=== PATIENT | male | born 1955 | race Caucasian/White ===

== ENCOUNTER → 2017-04-18 | Outpatient (CLI) | payer OTHER ==
[~2017-04-18] MED LIST: ADVAIR 250/501 EA INH; ALBUTEROL0.09 MG/AC INH; ALBUTEROL0.63 MG/3 INH; AMBIEN10 M1 PO; CIPRO250 MG PO; GLIPIZIDE10 MG PO; GLUCOPHAGE1000 MG PO; HYDROCODONE BIT1 T11 PO; IBUPROFEN 30 M800 MG PO; JARDIANCE10 MG PO; LEVEMIR10 ML SQ; LISINOPRIL20 MG PO; LISINOPRIL5 MG PO; METFORMIN500 MG PO; Motrin,Rufen800 MG PO; NEURONTIN600 MG PO; ONGLYZA5 MG PO; QVAR0.08 MG/AC INH; SIMVASTATIN10 MG PO; SINGULAIR10 MG PO; SYMBICORT1 AE1 INH; TAMSULOSIN HCL0.4 MG PO; VENTOLIN 02.5 MG/3 M INH; VENTOLIN H0.09 MG/AC INH; VICO75300 PO; VICODIN ES 7501 TAB PO; VITAMIN D50000 I3 PO; ZOCOR20 MG PO
--- NOTE | ~2017-04-18 | WRIGHTHP ---
[place], [place] PATIENT HISTORY AND PHYSICAL EXAM NAME: [facility]S [facility]: [id number] UNIT #: [id number] ROOM: DOCTOR: RIGO IsabelISA BIRTHDATE: [birth year] DOS: 04/18/2017 This is a new wound care evaluation. CHIEF COMPLAINT: Itchy and reddened area on the left leg. HISTORY OF PRESENT ILLNESS: This is a 61-year-old male who is a diabetic who apparently was referred to us from his PCP for an area of his left leg that has been itchy and red for the past 5 months now. It is somewhat shaped like a toby. The patient states that he actually has been using triple antibiotic ointment on it for an extended period of time, which he thinks is helping and also he did state that since he was recently started on prednisone for a contact dermatitis from poison oak that area of redness and itching has also improved after starting oral steroids for this poison oak that he has had. He never really had an open ulcer per his report. He states he has occasionally had a scabbed area that kind of falls off but really it has not ever been open and draining. He is not sure how it all started. PAST MEDICAL HISTORY: Significant for the following, hyperlipidemia; hypertension; type 2 diabetes, his blood sugar is 150 in the morning usually, he is on insulin and oral agents; he has a history of kidney stones; peripheral neuropathy; insomnia; asthma; bronchitis; COPD and sleep apnea. PAST SURGICAL HISTORY: He is status post kidney surgery, parathyroid surgery, broken ankle surgery, carpal tunnel surgery, hemorrhoidectomy and colonoscopy in 2014. FAMILY HISTORY: Significant for diabetes. SOCIAL HISTORY: He is a current every day smoker and he is single. He does not use drugs or alcohol. ALLERGIES: PENICILLIN. MEDICATIONS: Neurontin 600 mg p.o. t.i.d., Jardiance 10 mg p.o. daily, metformin 1000 mg p.o. b.i.d., Nesina 25 mg daily, simvastatin 20 mg daily, lisinopril 20 mg daily, albuterol inhalation nebulizers every 6 hours p.r.n., Ventolin 2 puffs every 4 hours p.r.n., Anoro Ellipta inhalation 1 puff daily, Depo-Medrol injection, insulin subcutaneous 40 units b.i.d., Singulair 10 mg daily, [place] 1 tablet p.o. b.i.d. p.r.n., ibuprofen 800 mg p.o. t.i.d. p.r.n., trazodone 50 mg at bedtime as needed and hydrochlorothiazide 25 mg p.o. daily. REVIEW OF SYSTEMS: Other than the reddened itchy rash on his anterior leg, which is right by where a sock would be, he has no other specific complaints today. PHYSICAL EXAMINATION: VITAL SIGNS: Temperature 98, pulse 80, respirations 16 and blood pressure is 110/62. GENERAL: This is a male who is healthy, well-developed and well-nourished, in [place], [place] PATIENT HISTORY AND PHYSICAL EXAM NAME: GERMAN CARDENAS UNIT #: [id number] ROOM: DOCTOR: ISA SIERRA M.D. BIRTHDATE: [birth year] no acute distress, pleasant and cooperative. HEENT: Shows sclerae are anicteric. Extraocular movements are intact. NECK: I did not appreciate any JVD. LUNGS: Have occasional wheezes bilaterally. CARDIOVASCULAR: S1, S2 regular rate and rhythm. ABDOMEN: Soft. EXTREMITIES: He has no edema. He does have some hemosiderin staining of his bilateral lower extremities, some superficial varicosities and also no open areas on his leg at this time. He does have a carroll and it is difficult to say how much of the skin discoloration he has is secondary to the suntan versus hemosiderin staining, but there seems to be some hemosiderin staining present. There is a very small erythematous area, it is not open, it is toby shaped that is where he complains of pruritus and it is not scaly, it is not circular, it does not appear to have a fungal type appearance, but it is not open at the present time. ASSESSMENT AND PLAN: Dermatitis type area of the left lower extremity, which did seem to improve with oral prednisone. I recommend to stop using triple antibiotic ointment as dermatitis can be a significant problem for some people after a prolonged period of use. The patient does not have an open wound at this time, so a complete MELISA assessment was not done today. He should be seen by a digital press operator. I did explain this to the patient and we will ask the primary care doctor to refer the patient to a digital press operator. In the meantime, a script for triamcinolone cream was given to the patient to be utilized twice a day for 1-2 weeks but no more than 2 weeks. The patient should follow up with the digital press operator for this area. ISA SIERRA MD CM:HISPHYS:PATIENT HISTORY AND PHYSICAL EXAMINATION [id number] ISA SIERRA M.D. 04/23/17 1011 interface
== END | disposition home or self-care (01) ==
LOC: WOUNDCARE 01:21
DX: I87.2 Venous insufficiency (chronic) (peripheral) (principal); I10 Essential (primary) hypertension; E78.5 Hyperlipidemia, unspecified; E11.42 Type 2 diabetes mellitus with diabetic polyneuropathy; J44.9 Chronic obstructive pulmonary disease, unspecified; F17.200 Nicotine dependence, unspecified, uncomplicated; Z79.4 Long term (current) use of insulin

== ENCOUNTER → 2018-01-23 | Outpatient (CLI) | payer OTHER ==
[2018-01-23 10:15] LABS: BASO # 0.1 10*3/uL (0.0-0.1); BASO % 0.5 % (0.0-1.0); EOS # 0.5 10*3/uL (0.0-0.4); EOS % 4.6 % (1.0-4.0); HEMATOCRIT 49.3 % (42.0-52.0); HEMOGLOBIN 16.5 g/dl (14.0-18.0); LYMPH % 25.9 % (27.0-41.0); MEAN CELL VOLUME 93.9 fl (80.0-94.0); MEAN CORPUSCULAR HGB 31.4 pg (27.0-31.0); MEAN CORPUSCULAR HGB CONC 33.5 g/dl (33.0-37.0); MEAN PLATELET VOLUME 10.2 fl (9.6-12.3); MONO # 1.1 10*3/uL (0.1-1.0); MONO % 9.6 % (3.0-9.0); NEUT # 6.7 10*3/uL (2.3-7.9); NEUT % 58.6 % (47.0-73.0); PLATELET COUNT AUTOMATED 202 10*3/uL (130-400); RED BLOOD COUNT 5.25 10*6/uL (4.50-5.90); RED CELL DISTRI WIDTH 13.7 % (0-14.5); WHITE BLOOD COUNT 11.4 10*3/uL (4.8-10.8)
[2018-01-23 10:31] LABS: ALBUMIN 3.5 gm/dl (3.1-4.5); ALKALINE PHOSPHATASE 93 U/L (45-117); BUN 29 mg/dl (7-24); CHLORIDE 103 mmol/L (98-107); CHOLESTEROL 110 mg/dL (<200); CREATININE 1.34 mg/dL (0.70-1.30); HDL CHOLESTEROL 36 mg/dl (40-60); LDL CHOLESTEROL 32 mg/dL (9-159); POTASSIUM 4.2 mmol/L (3.5-5.1); SGOT/AST 16 IU/L (3-35); SGPT/ALT 28 U/L (12-78); SODIUM 136 mmol/L (136-145); TOTAL PROTEIN 7.7 gm/dL (6.4-8.2); TRIGLYCERIDES 212 mg/dl (<150); VLDL CHOLESTEROL 42 mg/dL (6-40)
== END | disposition home or self-care (01) ==
LOC: LAB 09:31
PROVIDERS: Internal Medicine
DX: E78.00 Pure hypercholesterolemia, unspecified (principal); E11.42 Type 2 diabetes mellitus with diabetic polyneuropathy; E55.9 Vitamin D deficiency, unspecified

== ENCOUNTER → 2019-09-30 | Outpatient (CLI) | payer OTHER ==
[~2019-09-30] MED LIST changes: +DOXYCYCLINE100 M3 PO
== END | disposition home or self-care (01) ==
LOC: ORTHO 00:52
DX: M19.012 Primary osteoarthritis, left shoulder (principal)

== ENCOUNTER → 2020-04-04 | Outpatient (CLI) | payer OTHER ==
[2020-04-04 13:25] LABS: BASO # 0.1 10*3/uL (0.0-0.1); BASO % 0.8 % (0.0-1.0); EOS # 0.3 10*3/uL (0.0-0.4); EOS % 3.9 % (1.0-4.0); HEMATOCRIT 51.1 % (42.0-52.0); LYMPH # 2.3 10*3/uL (1.3-4.4); LYMPH % 31.1 % (27.0-41.0); MEAN CELL VOLUME 91.4 fl (80.0-94.0); MEAN CORPUSCULAR HGB 30.6 pg (27.0-31.0); MEAN CORPUSCULAR HGB CONC 33.5 g/dl (33.0-37.0); MEAN PLATELET VOLUME 9.5 fl (9.6-12.3); MONO # 0.6 10*3/uL (0.1-1.0); MONO % 8.6 % (3.0-9.0); NEUT # 4.1 10*3/uL (2.3-7.9); NEUT % 54.8 % (47.0-73.0); PLATELET COUNT AUTOMATED 202 10*3/uL (130-400); RED BLOOD COUNT 5.59 10*6/uL (4.50-5.90); RED CELL DISTRI WIDTH 13.1 % (0-14.5); WHITE BLOOD COUNT 7.5 10*3/uL (4.8-10.8)
[2020-04-04 13:43] LABS: ALBUMIN 3.5 gm/dl (3.1-4.5); ALKALINE PHOSPHATASE 90 U/L (45-117); BUN 20 mg/dl (7-24); CHLORIDE 100 mmol/L (98-107); CHOLESTEROL 126 mg/dL (<200); CREATININE 1.27 mg/dL (0.70-1.30); HDL CHOLESTEROL 39 mg/dl (40-60); LDL CHOLESTEROL 40 mg/dL (9-159); POTASSIUM 4.1 mmol/L (3.5-5.1); SGOT/AST 14 IU/L (3-35); SGPT/ALT 27 U/L (12-78); SODIUM 131 mmol/L (136-145); TOTAL PROTEIN 7.7 gm/dL (6.4-8.2); TRIGLYCERIDES 235 mg/dl (<150); VLDL CHOLESTEROL 47 mg/dL (6-40)
== END | disposition home or self-care (01) ==
LOC: LAB 13:03
PROVIDERS: Nurse Practitioner Primary Care
DX: I10 Essential (primary) hypertension (principal); E11.42 Type 2 diabetes mellitus with diabetic polyneuropathy

== ENCOUNTER → 2020-05-17 | Outpatient (CLI) | payer SELFPAY | END | disposition home or self-care (01) | LOC: RESCLI 08:56 | PROVIDERS: ATTEND Student in an Organized Health Care Education/Training Program | DX: J44.1 Chronic obstructive pulmonary disease with (acute) exacerbation (principal); I10 Essential (primary) hypertension; E11.65 Type 2 diabetes mellitus with hyperglycemia; E55.9 Vitamin D deficiency, unspecified; K21.9 Gastro-esophageal reflux disease without esophagitis; G62.9 Polyneuropathy, unspecified; E78.5 Hyperlipidemia, unspecified; G47.00 Insomnia, unspecified; F17.210 Nicotine dependence, cigarettes, uncomplicated; Z88.0 Allergy status to penicillin; Z12.11 Encounter for screening for malignant neoplasm of colon; Z79.899 Other long term (current) drug therapy; Z23 Encounter for immunization; Z98.890 Other specified postprocedural states ==

== ENCOUNTER → 2020-06-23 | Outpatient (CLI) | payer SELFPAY | END | disposition home or self-care (01) | LOC: RESCLI 10:01 | PROVIDERS: ATTEND Internal Medicine Nephrology | DX: J44.1 Chronic obstructive pulmonary disease with (acute) exacerbation (principal); I10 Essential (primary) hypertension; E55.9 Vitamin D deficiency, unspecified; E11.42 Type 2 diabetes mellitus with diabetic polyneuropathy; G89.29 Other chronic pain; M54.42 Lumbago with sciatica, left side; M75.02 Adhesive capsulitis of left shoulder; K21.9 Gastro-esophageal reflux disease without esophagitis; G47.33 Obstructive sleep apnea (adult) (pediatric); F51.04 Psychophysiologic insomnia; M19.012 Primary osteoarthritis, left shoulder; G62.9 Polyneuropathy, unspecified; E78.5 Hyperlipidemia, unspecified; Z79.4 Long term (current) use of insulin; G47.00 Insomnia, unspecified; M75.82 Other shoulder lesions, left shoulder; D58.2 Other hemoglobinopathies; J30.1 Allergic rhinitis due to pollen; E78.00 Pure hypercholesterolemia, unspecified; E78.1 Pure hyperglyceridemia; J41.1 Mucopurulent chronic bronchitis; E11.65 Type 2 diabetes mellitus with hyperglycemia; Z79.899 Other long term (current) drug therapy; Z98.890 Other specified postprocedural states ==

== ENCOUNTER → 2020-07-27 | Outpatient (CLI) | payer OTHER | END | disposition home or self-care (01) | LOC: RESCLI 09:51 | PROVIDERS: ATTEND Internal Medicine | DX: J44.1 Chronic obstructive pulmonary disease with (acute) exacerbation (principal); I10 Essential (primary) hypertension; E55.9 Vitamin D deficiency, unspecified; E78.5 Hyperlipidemia, unspecified; K21.9 Gastro-esophageal reflux disease without esophagitis; G62.9 Polyneuropathy, unspecified; E11.65 Type 2 diabetes mellitus with hyperglycemia; F17.210 Nicotine dependence, cigarettes, uncomplicated; Z23 Encounter for immunization; Z12.11 Encounter for screening for malignant neoplasm of colon; Z79.899 Other long term (current) drug therapy; Z98.890 Other specified postprocedural states; Z88.0 Allergy status to penicillin ==

== ENCOUNTER → 2020-10-11 | Outpatient (CLI) | payer OTHER | END | disposition home or self-care (01) | LOC: RAD 11:49 | PROVIDERS: ATTEND Nurse Practitioner Primary Care | DX: J43.9 Emphysema, unspecified (principal); J18.0 Bronchopneumonia, unspecified organism ==

== ENCOUNTER → 2020-11-07 | Outpatient (CLI) | payer OTHER | END | disposition home or self-care (01) | LOC: CT 09:00 | PROVIDERS: ATTEND Nurse Practitioner Primary Care | DX: J40 Bronchitis, not specified as acute or chronic (principal); J98.4 Other disorders of lung; I77.89 Other specified disorders of arteries and arterioles; J44.1 Chronic obstructive pulmonary disease with (acute) exacerbation; I87.8 Other specified disorders of veins; M48.54XA Collapsed vertebra, not elsewhere classified, thoracic region, initial encounter for fracture; I25.10 Atherosclerotic heart disease of native coronary artery without angina pectoris; R59.0 Localized enlarged lymph nodes; Z98.890 Other specified postprocedural states; Z72.0 Tobacco use ==

== ENCOUNTER → 2021-06-16 | Outpatient (CLI) | payer OTHER | END | disposition home or self-care (01) | LOC: RESCLI 00:17 | PROVIDERS: ATTEND Internal Medicine | DX: E11.42 Type 2 diabetes mellitus with diabetic polyneuropathy (principal); R06.02 Shortness of breath; R05.9 Cough, unspecified; E11.65 Type 2 diabetes mellitus with hyperglycemia; K21.9 Gastro-esophageal reflux disease without esophagitis; E78.5 Hyperlipidemia, unspecified; I10 Essential (primary) hypertension; E55.9 Vitamin D deficiency, unspecified; G47.00 Insomnia, unspecified; J44.9 Chronic obstructive pulmonary disease, unspecified; Z79.82 Long term (current) use of aspirin; Z79.84 Long term (current) use of oral hypoglycemic drugs; Z79.899 Other long term (current) drug therapy; Z88.0 Allergy status to penicillin ==

== ENCOUNTER → 2021-06-29 | Outpatient (CLI) | payer OTHER | END | disposition home or self-care (01) | LOC: RAD 11:56 | PROVIDERS: ATTEND Nurse Practitioner Primary Care | DX: S22.41XA Multiple fractures of ribs, right side, initial encounter for closed fracture (principal); J43.8 Other emphysema; W19.XXXA Unspecified fall, initial encounter ==

== ENCOUNTER → 2022-03-20 | Outpatient (CLI) | payer OTHER ==
[2022-03-20 10:24] LABS: BASO # 0.1 10*3/uL (0.0-0.1); BASO % 0.8 % (0.0-1.0); EOS # 0.3 10*3/uL (0.0-0.4); EOS % 2.8 % (1.0-4.0); HEMATOCRIT 44.5 % (42.0-52.0); LYMPH # 2.2 10*3/uL (1.3-4.4); LYMPH % 19.3 % (27.0-41.0); MEAN CELL VOLUME 90.1 fl (80.0-94.0); MEAN CORPUSCULAR HGB 28.5 pg (27.0-31.0); MEAN CORPUSCULAR HGB CONC 31.7 g/dl (33.0-37.0); MEAN PLATELET VOLUME 9.3 fl (9.6-12.3); MONO % 8.2 % (3.0-9.0); NEUT # 7.9 10*3/uL (2.3-7.9); NEUT % 67.9 % (47.0-73.0); PLATELET COUNT AUTOMATED 239 10*3/uL (130-400); RED BLOOD COUNT 4.94 10*6/uL (4.50-5.90); RED CELL DISTRI WIDTH 16.9 % (0-14.5); WHITE BLOOD COUNT 11.6 10*3/uL (4.8-10.8)
[2022-03-20 10:42] LABS: CREATININE 2.01 mg/dL (0.70-1.30); POTASSIUM 4.6 mmol/L (3.5-5.1); TOTAL PROTEIN 7.7 gm/dL (6.4-8.2)
== END | disposition home or self-care (01) ==
LOC: RESCLI 01:10
PROVIDERS: Student in an Organized Health Care Education/Training Program; ATTEND Student in an Organized Health Care Education/Training Program
DX: I11.9 Hypertensive heart disease without heart failure (principal); E55.9 Vitamin D deficiency, unspecified; J41.1 Mucopurulent chronic bronchitis; E11.42 Type 2 diabetes mellitus with diabetic polyneuropathy; Z79.4 Long term (current) use of insulin; M54.42 Lumbago with sciatica, left side; G89.29 Other chronic pain; K21.9 Gastro-esophageal reflux disease without esophagitis; J30.1 Allergic rhinitis due to pollen; E78.1 Pure hyperglyceridemia; J44.9 Chronic obstructive pulmonary disease, unspecified; J84.10 Pulmonary fibrosis, unspecified; I25.10 Atherosclerotic heart disease of native coronary artery without angina pectoris; L03.90 Cellulitis, unspecified; G47.33 Obstructive sleep apnea (adult) (pediatric); G62.9 Polyneuropathy, unspecified; F51.04 Psychophysiologic insomnia; E78.5 Hyperlipidemia, unspecified; Z79.899 Other long term (current) drug therapy; Z79.01 Long term (current) use of anticoagulants; Z79.82 Long term (current) use of aspirin; Z88.0 Allergy status to penicillin

== ENCOUNTER 2022-03-24 11:10 | Emergency (ER) | payer OTHER ==
[~2022-03-24] VITALS: Ht 172.7 cm; Wt 88.5 kg
[2022-03-24 14:14] LABS: BASO # 0.1 10*3/uL (0.0-0.1); BASO % 0.6 % (0.0-1.0); EOS # 0.2 10*3/uL (0.0-0.4); EOS % 1.7 % (1.0-4.0); HEMATOCRIT 42.9 % (42.0-52.0); LYMPH # 1.9 10*3/uL (1.3-4.4); LYMPH % 18.5 % (27.0-41.0); MEAN CELL VOLUME 89.7 fl (80.0-94.0); MEAN CORPUSCULAR HGB 29.5 pg (27.0-31.0); MEAN CORPUSCULAR HGB CONC 32.9 g/dl (33.0-37.0); PLATELET COUNT AUTOMATED 203 10*3/uL (130-400); RED BLOOD COUNT 4.78 10*6/uL (4.50-5.90); RED CELL DISTRI WIDTH 16.5 % (0-14.5); WHITE BLOOD COUNT 10.3 10*3/uL (4.8-10.8)
[2022-03-24 14:32] LABS: CREATININE 2.19 mg/dL (0.70-1.30); POTASSIUM 4.2 mmol/L (3.5-5.1)
== END 2022-03-24 16:15 | disposition short-term general hospital (02) ==
LOC: ED 11:10
PROVIDERS: Emergency Medicine
DX: L02.01 Cutaneous abscess of face (principal); E11.9 Type 2 diabetes mellitus without complications; Z88.0 Allergy status to penicillin; Z79.899 Other long term (current) drug therapy

== ENCOUNTER → 2022-09-04 | Outpatient (CLI) | payer OTHER ==
[2022-09-04 11:18] LABS: BASO # 0.1 10*3/uL (0.0-0.1); BASO % 1.1 % (0.0-1.0); EOS # 0.3 10*3/uL (0.0-0.4); EOS % 4.7 % (1.0-4.0); HEMATOCRIT 48.2 % (42.0-52.0); LYMPH # 1.8 10*3/uL (1.3-4.4); LYMPH % 24.7 % (27.0-41.0); MEAN CELL VOLUME 84.9 fl (80.0-94.0); MEAN CORPUSCULAR HGB 26.2 pg (27.0-31.0); MEAN CORPUSCULAR HGB CONC 30.9 g/dl (33.0-37.0); MEAN PLATELET VOLUME 9.3 fl (9.6-12.3); MONO # 0.9 10*3/uL (0.1-1.0); MONO % 12.3 % (3.0-9.0); NEUT % 56.5 % (47.0-73.0); PLATELET COUNT AUTOMATED 290 10*3/uL (130-400); RED BLOOD COUNT 5.68 10*6/uL (4.50-5.90); RED CELL DISTRI WIDTH 18.3 % (0-14.5); WHITE BLOOD COUNT 7.1 10*3/uL (4.8-10.8)
[2022-09-04 11:34] LABS: ALKALINE PHOSPHATASE 85 U/L (46-116); BUN 33 mg/dl (9-23); CHLORIDE 100 mmol/L (98-107); CHOLESTEROL 172 mg/dL (<200); LDL CHOLESTEROL 98 mg/dL (9-159); POTASSIUM 4.3 mmol/L (3.4-5.1); SGPT/ALT 16 U/L (10-49); TOTAL PROTEIN 7.5 gm/dL (6.0-8.0); TRIGLYCERIDES 178 mg/dl (<150)
== END | disposition home or self-care (01) ==
LOC: RESCLI 02:59
PROVIDERS: Student in an Organized Health Care Education/Training Program; ATTEND Internal Medicine
DX: J44.1 Chronic obstructive pulmonary disease with (acute) exacerbation (principal); E11.42 Type 2 diabetes mellitus with diabetic polyneuropathy; I10 Essential (primary) hypertension; F51.04 Psychophysiologic insomnia; E55.9 Vitamin D deficiency, unspecified; M54.42 Lumbago with sciatica, left side; G89.29 Other chronic pain; G47.33 Obstructive sleep apnea (adult) (pediatric); K21.9 Gastro-esophageal reflux disease without esophagitis; J30.1 Allergic rhinitis due to pollen; E78.1 Pure hyperglyceridemia; G62.9 Polyneuropathy, unspecified; I25.10 Atherosclerotic heart disease of native coronary artery without angina pectoris; J84.10 Pulmonary fibrosis, unspecified; F17.200 Nicotine dependence, unspecified, uncomplicated; Z88.0 Allergy status to penicillin; Z72.89 Other problems related to lifestyle; Z98.890 Other specified postprocedural states; M19.90 Unspecified osteoarthritis, unspecified site; Z79.4 Long term (current) use of insulin; Z79.82 Long term (current) use of aspirin; Z79.84 Long term (current) use of oral hypoglycemic drugs; Z79.899 Other long term (current) drug therapy